=== PATIENT | female | born 1970 | race Caucasian/White ===

== ENCOUNTER 2017-04-26 14:21 | Emergency (ER) | payer MEDICAID ==
[~2017-04-26] VITALS: Ht 154.9 cm; Wt 68.0 kg
[2017-04-26 14:45] VITALS: BP 169/55
== END 2017-04-26 19:34 | disposition home or self-care (01) ==
LOC: ER 16:25
DX: R51 Headache (principal); E11.9 Type 2 diabetes mellitus without complications
CPT/HCPCS: 99281; 99282